=== PATIENT | male | born 1985 | race Caucasian/White ===

== ENCOUNTER 2022-03-11 16:54 | Emergency (ER) | payer BC ==
[2022-03-11 17:39] LABS: HEMOGLOBIN 17.5 gm/dl (14.0-17.5); RED BLOOD COUNT 5.61 M/UL (4.20-5.50); WHITE BLOOD COUNT 11.2 K/UL (4.5-11.0)
[2022-03-11 17:52] LABS: BUN/CREATININE RATIO 6 (0-10)
== END 2022-03-12 00:55 | disposition home or self-care (01) ==
LOC: ER1 16:54
PROVIDERS: Family Medicine
DX: R07.89 Other chest pain (principal); E80.7 Disorder of bilirubin metabolism, unspecified; E11.9 Type 2 diabetes mellitus without complications; E78.5 Hyperlipidemia, unspecified; I10 Essential (primary) hypertension; F17.290 Nicotine dependence, other tobacco product, uncomplicated
CPT/HCPCS: 71045; 80053; 82550; 82553; 83690; 84484; 85025; 93005; 99285; Q9967